=== PATIENT | female | born 1955 | race Caucasian/White ===

== ENCOUNTER 2018-11-11 12:18 | Inpatient (IN) | payer MEDICARE, MEDICAID ==
[~2018-11-11] VITALS: Ht 162.6 cm; Wt 82.6 kg
[2018-11-11 12:38] VITALS: BP 116/67
--- NOTE | 2018-11-11 12:38 | NUR ---
PT AMBULATED TO ROOM 6 PT PLACED ON O2 4LPM VIA N/C AND PLACED ON FULL COBOL PROGRAMMER.
--- NOTE | 2018-11-11 13:30 | NUR ---
c/o recurring frontal lobe headache , hacking dry cough with sob, dizziness x 1 wk denies n/v/d, denies f/c---full clear speech notable mild accessory muscle use noted ---no pedal edema
--- NOTE | 2018-11-11 13:31 | NUR ---
cxr at bedside
--- NOTE | 2018-11-11 13:40 | NUR ---
PER RT, GIVE PT OXYGEN 5-6 L/MIN WHEN HER O2 SATS LOWER THAN 94%, TAPER OXYGEN TO 3-4 L/MIN WHEN HER X2 SATS ABOVE 94%.
[2018-11-11] MEDS ORDERED: AZITHROMYCIN 500 MG in DEXTROSE 5% 250 ML IV ONE (13:50)
[2018-11-11] MEDS ORDERED: LEVOFLOXACIN 750 MG/D5W PREMIX 150 ML IV ONE (13:50)
[2018-11-11] MEDS ORDERED: NACL 0.9% 2,600 ML IV ONE (13:50)
[2018-11-11] MEDS ORDERED: AZITHROMYCIN 500 MG INJ VIAL IV ONE (14:26)
--- NOTE | 2018-11-11 14:40 | NUR ---
PT IS RESTING IN BED. VSS.
[2018-11-11 14:45] LABS: HEMATOCRIT 38.9 % (36-48); HEMOGLOBIN 13.1 g/dL (12.0-16.0); MEAN CORPUSCULAR HEMOGLOBIN 31 pg (27-31); MEAN CORPUSCULAR HGB CONC 34 g/dL (33-37); MEAN CORPUSCULAR VOLUME 91.8 fL (80-94); PLATELET COUNT (AUTO) 429 K/uL (140-450); RED BLOOD CELL COUNT(AUTO) 4.24 MIL/uL (4.20-5.40); RED CELL DISTRIBUTION WIDTH 13.2 % (11.6-13.7); WHITE BLOOD COUNT (AUTO) 19.1 K/uL (4.8-10.8)
[2018-11-11 15:09] LABS: ALBUMIN 2.3 g/dL (3.4-5.0); ANION GAP 9.3 (8-16); CARBON DIOXIDE 28.1 mmol/L (21-32); CREATININE 0.8 mg/dL (0.6-1.3); POTASSIUM 4.4 mmol/L (3.5-5.1); TOTAL BILIRUBIN 0.4 mg/dL (0.0-1.0)
[2018-11-11 15:14] LABS: LYMPHOCYTES % (MANUAL) 3 % (20-46)
--- NOTE | 2018-11-11 15:55 | NUR ---
PT IS RESTING IN BED WITH VSS.
[2018-11-11] MEDS ORDERED: DOCUSATE SODIUM 100 MG GELCAP PO PRN (16:35)
--- NOTE | 2018-11-11 16:50 | NUR ---
SPOKE TO PT VIA INTERPRETOR. INTERPRETING # [id number].
[2018-11-11 17:04] LABS: PROTHROMBIN TIME 10.8 secs (10.8-13.4)
[2018-11-11 17:10] VITALS: BP 116/53
--- NOTE | 2018-11-11 17:10 | NUR ---
PATIENT ARRIVED FROM ER VIA WHEELCHAIR. ABLE TO AMBULATE FROM ER BED TO [facility] BED WITH STEADY GAIT. NO DISTRESS NOTED. DENIES ANY PAIN. RESPIRATIONS EVEN, UNLABORED, ON O2 4L/MIN VIA NC. V/S STABLE. IV SITES INTACT, PATENT, AND INFUSING IVF PER MD ORDERS. LUNGS CRACKLES ON B/L LOWER LOBES. ORIENTED PATIENT TO ROOM AND CALL LIGHT. REVIEWED PLAN OF CARE WITH PATIENT. PATIENT VERBALIZED UNDERSTANDING. SAFETY MEASURES IN PLACE, CALL LIGHT WITHIN REACH. WILL CONTINUE TO MONITOR.
--- NOTE | 2018-11-11 17:10 | NUR ---
Patient will be admitted to care of PNEUMONIA. Admited to MED-SURG. Will go to room 107B. Belongings list completed. Report to DAREN SMILEY.
[2018-11-11 17:15] LABS: CHOL/HDL RATIO 5.6 (1-4.5); FREE T4 (FREE THYROXINE) 1.78 ng/dL (0.76-1.46); MAGNESIUM 1.9 mg/dL (1.8-2.4); PHOSPHORUS 4.1 mg/dL (2.5-4.9); THYROID STIMULATING HORMONE 0.09 uIU/mL (0.34-3.74)
[2018-11-11 17:16] LABS: BILIRUBIN,URINE NEGATIVE (NEGATIVE); BLOOD, URINE 1+ (NEGATIVE); COLOR,URINE YELLOW (YELLOW); LEUKOCYTE ESTERASE ,URINE 1+ (NEGATIVE); NITRITE, URINE NEGATIVE (NEGATIVE); UGLUCOSE NEGATIVE (NEGATIVE)
[2018-11-11] MEDS ORDERED: ALBUTEROL SULFATE/IPRATROPIU 3 ML SOL IH PRN (17:20)
[2018-11-11 17:25] LABS: BARBITURATE, URINE NEG. ng/ml (NEG <=200); BENZODIAZEPINE, URINE NEG. ng/mL (NEG <=200); CANNABINOID, URINE NEG. ng/mL (NEG <=50); COCAINE, URINE NEG. ng/mL (NEG <=300); OPIATE, URINE NEG. ng/mL (NEG <=2000); PHENCYCLIDINE SCREEN,URINE NEG. ng/mL (NEG <=25)
[2018-11-11] MEDS ORDERED: METHIMAZOLE 5 MG TAB PO SCH (17:45)
[2018-11-11] MEDS ORDERED: cefTRIAXone 1,000 MG VIAL ONE (18:02)
[2018-11-11] MEDS: NACL 0.9% 1,000 ML IV SCH (18:13)
--- NOTE | 2018-11-11 18:22 | NUR ---
SCHEDULED MEDICATIONS DUE GIVEN. WILL CONTINUE TO MONITOR.
[2018-11-11 19:09] LABS: APPEARANCE,URINE HAZY (CLEAR)
[2018-11-11 19:16] LABS: RBC,URINE NONE SEEN /HPF (0-5); WBC,URINE 0-5 /HPF (0-5)
--- NOTE | 2018-11-11 19:23 | NUR ---
GAVE REPORT TO RETAIL FURNITURE SALES NURSE FOR CONTINUITY OF CARE. PATIENT IN STABLE CONDITION.
--- NOTE | 2018-11-11 19:30 | NUR ---
RECEIVED PT FROM SHERICE MERCEDES PT KINYARWANDA SPEAKER AAOX4 HL ON BOTH ARM PATENT, IV ON RT ARM INFUSING WELL ON TELEMETRY ST PT ON O2 4 LTS VIA NC AND REFUSED SHE WANT TO LOWER O2 AND 02 ON 2 LTS WELL TOLERATED PT INITIAL ASSESSMENT DONE
[2018-11-11] MEDS: ALBUTEROL SULFATE/IPRATROPIU 3 ML SOL IH SCH (19:49)
--- NOTE | 2018-11-11 21:00 | NUR ---
RESP THERAPY IS HERE AND GIVE BREATHING TX
[2018-11-11 22:43] VITALS: BP 108/56
--- NOTE | 2018-11-12 | NUR ---
PT HAS A DRY COUGH PT ON O2 VIA NC NOT SOB NOTED ON TELE SR
[2018-11-12] MEDS: ALBUTEROL SULFATE/IPRATROPIU 3 ML SOL IH SCH ×4 (01:32→19:13)
[2018-11-12 04:00] VITALS: BP 108/50
--- NOTE | 2018-11-12 04:00 | NUR ---
SPONGE BATH GIVEN LINEN CHANGED PT VOIDING WELL USING BSC NOT DISTRESS NOTES ON TELE SR
[2018-11-12] MEDS: NACL 0.9% 1,000 ML IV SCH (05:58)
--- NOTE | 2018-11-12 06:07 | NUR ---
PT VERBALIZED TO FEELS BETTER BU PT STILL NEEDS O2 VIA NC, ON TELE SR PT WILL BE ENDORSED TO DAY SHIFT NURSE FOR CONTINUE OF CARE
--- NOTE | 2018-11-12 07:20 | NUR ---
RECEIVED ENDORSEMENT FROM VIDEO NETWORK ENGINEER NURSE. PATIENT IS AAOX4, MALDIVIAN SPEAKING. RESPIRATIONS ARE EVEN AND UNLABORED ON 4L NC. PATIENT DENIES ANY PAIN AT THIS TIME. RIGHT WRIST 22G IV INTACT, PATENT, AND INFUSING IVF. LEFT FA 22G IV INTACT AND SL. PLAN OF CARE WAS REVIEWED WITH PATIENT, PATIENT VERBALIZED UNDERSTANDING. SAFETY MEASURES IN PLACE, CALL LIGHT WITHIN REACH.
[2018-11-12 07:51] LABS: HEMOGLOBIN 12.3 g/dL (12.0-16.0); MEAN CORPUSCULAR HEMOGLOBIN 31 pg (27-31); MEAN CORPUSCULAR HGB CONC 33 g/dL (33-37); MEAN CORPUSCULAR VOLUME 92.5 fL (80-94); PLATELET COUNT (AUTO) 380 K/uL (140-450); RED CELL DISTRIBUTION WIDTH 13.3 % (11.6-13.7); WHITE BLOOD COUNT (AUTO) 19.7 K/uL (4.8-10.8)
[2018-11-12 08:00] VITALS: BP 119/74
[2018-11-12 08:16] LABS: CREATININE 0.8 mg/dL (0.6-1.3); POTASSIUM 3.8 mmol/L (3.5-5.1)
[2018-11-12 08:21] LABS: ANION GAP 13.3 (8-16); CARBON DIOXIDE 24.5 mmol/L (21-32)
[2018-11-12 08:33] LABS: BASOPHILS % (MANUAL) 0 % (0-2); EOSINOPHILS % (MANUAL) 5 % (0-4); LYMPHOCYTES % (MANUAL) 12 % (20-46); MONOCYTES % (MANUAL) 6 % (5-12)
[2018-11-12] MEDS: METHIMAZOLE 5 MG TAB PO SCH (08:34)
--- NOTE | 2018-11-12 08:35 | NUR ---
ADMINISTERED SCHEDULED MEDICATIONS. PATIENT TOLERATED WELL. PATIENT DENIES ANY PAIN AT THIS TIME. NO OTHER NEEDS AT THIS TIME, WILL CONTINUE TO MONITOR.
--- NOTE | 2018-11-12 10:10 | NUR ---
PATIENT RESTING IN BED. PATIENT DENIES ANY PAIN AT THIS TIME. NO OTHER NEEDS AT THIS TIME, WILL CONTINUE TO MONITOR.
--- NOTE | 2018-11-12 11:45 | NUR ---
US TECH AT BEDSIDE. PATIENT DENIES ANY PAIN AT THIS TIME. NO OTHER NEEDS AT THIS TIME, WILL CONTINUE TO MONITOR.
[2018-11-12 12:00] VITALS: BP 122/55
--- NOTE | 2018-11-12 13:05 | NUR ---
PATIENT RESTING IN BED. STATES THAT SHE IS FEELING MUCH BETTER. PATIENT DENIES SOB OR ANY PAIN AT THIS TIME, WILL CONTINUE TO MONITOR.
--- NOTE | 2018-11-12 14:38 | NUR ---
PATIENT RESTING IN BED. DENIES ANY PAIN AT THIS TIME. NO OTHER NEEDS AT THIS TIME, WILL CONTINUE TO MONITOR.
[2018-11-12] MEDS: AZITHROMYCIN 250 MG in DEXTROSE 5% 250 ML IV SCH (14:57)
--- NOTE | 2018-11-12 15:00 | NUR ---
ADMINISTERED SCHEDULED MEDICATIONS. PATIENT DENIES ANY PAIN AT THIS TIME. NO OTHER NEEDS AT THIS TIME, WILL CONTINUE TO MONITOR.
[2018-11-12 16:00] VITALS: BP 129/57
--- NOTE | 2018-11-12 17:12 | NUR ---
PATIENT RESTING IN BED. PATIENT DENIES ANY SOB OR PAIN. SON IS PRESENT AT THE BEDSIDE. NO OTHER NEEDS AT THIS TIME, WILL CONTINUE TO MONITOR.
--- NOTE | 2018-11-12 18:20 | NUR ---
ADMINISTERED SCHEDULED MEDICATIONS. PATIENT TOLERATED WELL. NO OTHER NEEDS AT THIS TIME.
--- NOTE | 2018-11-12 19:12 | NUR ---
ENDORSED TO LEARNING SUPPORT SERVICES DIRECTOR NURSE CODIE FOR CONTINUITY OF CARE. PATIENT IS STABLE AT THIS TIME.
--- NOTE | 2018-11-12 19:13 | NUR ---
RECEIVED BEDSIDE REPORT FROM DAY SHIFT NURSE. PT'S SPOUSE AT BEDSIDE. NO SOB NOTED WITH O2 4LPM VIA NC. INTERMITTENT NON-PRODUCTIVE COUGH NOTED. SKIN INTACT, WARM AND DRY TO TOUCH. IV SITE ON R WRIST, 22G SL AND L WRIST, 22G, RUNNING NS @ 60MLS/HR. PATENT, INTACT, AND ASYMPTOMATIC. BOARD UPDATED. BED IN LOW POSITION, CALL LIGHT WITHIN REACH.
[2018-11-12 20:00] VITALS: BP 111/60
[2018-11-12] MEDS: MELATONIN 3 MG TAB PO PRN (21:12)
--- NOTE | 2018-11-12 21:12 | NUR ---
PT C/O SLEEPLESSNESS. REPORT TO DR. VIDAL AND GIVEN MELATONIN ORDERED. PT TOLERATED WELL.
[2018-11-13] VITALS: BP 110/61
[2018-11-13] MEDS: ALBUTEROL SULFATE/IPRATROPIU 3 ML SOL IH SCH ×4 (01:00→20:07)
--- NOTE | 2018-11-13 01:06 | NUR ---
PT REFUSED HHN, SHE WANTS TO SLEEP,SAT 95%, NO DISTTRESS NOTED
[2018-11-13] MEDS: NACL 0.9% 1,000 ML IV SCH ×2 (01:54→18:12)
--- NOTE | 2018-11-13 02:15 | NUR ---
PT SLEEPING IN BED. RESPIRATORY EVEN AND UNLABORED.
--- NOTE | 2018-11-13 03:45 | NUR ---
PT SLEEPING IN BED. NO ACUTE DISTRESS NOTED.
[2018-11-13 04:00] VITALS: BP 130/73
--- NOTE | 2018-11-13 05:55 | NUR ---
PT SLEEPING IN BED. BREATHING EVEN AND UNLABORED. WILL CONTINUE TO MONITOR.
--- NOTE | 2018-11-13 07:05 | NUR ---
ENDORSE PT TO DAY SHIFT NURSE. PT IN STABLE CONDITION.
--- NOTE | 2018-11-13 07:06 | NUR ---
RECEIVED ENDORSEMENT FROM CUSTOMER SERVICE ASSOCIATE NURSE MALAIKA. PATIENT IS AAOX4, BELIZEAN SPEAKING. RESPIRATIONS ARE EVEN AND UNLABORED ON 4L NC. PATIENT DENIES ANY PAIN AT THIS TIME. RIGHT WRIST 22G IV INTACT AND SL. LEFT HAND 22G IV INTACT, PATENT, AND INFUSING IVF. PLAN OF CARE WAS REVIEWED WITH PATIENT IN [place], PATIENT VERBALIZED UNDERSTANDING. SAFETY MEASURES IN PLACE, CALL LIGHT WITHIN REACH.
[2018-11-13 07:40] LABS: ANION GAP 12.2 (8-16); CARBON DIOXIDE 26.5 mmol/L (21-32); CREATININE 0.8 mg/dL (0.6-1.3); POTASSIUM 3.7 mmol/L (3.5-5.1)
[2018-11-13 07:41] LABS: BASOPHILS # (AUTO) 0.2 K/uL (0.00-0.22); BASOPHILS % (AUTO) 1.1 % (0.0-2.0); EOSINOPHILS % (AUTO) 6.6 % (0.0-4.0); HEMATOCRIT 37.4 % (36-48); HEMOGLOBIN 12.3 g/dL (12.0-16.0); LYMPHOCYTES # (AUTO) 1.1 K/uL (2.5-16.5); LYMPHOCYTES % (AUTO) 6.8 % (20.5-51.1); MEAN CORPUSCULAR HEMOGLOBIN 31 pg (27-31); MEAN CORPUSCULAR HGB CONC 33 g/dL (33-37); MEAN CORPUSCULAR VOLUME 93.1 fL (80-94); MONOCYTES % (AUTO) 6.4 % (1.7-9.3); NEUTROPHILS # (AUTO) 12.3 K/uL (1.8-7.7); NEUTROPHILS % (AUTO) 79.1 % (42.2-75.2); PLATELET COUNT (AUTO) 389 K/uL (140-450); RED BLOOD CELL COUNT(AUTO) 4.02 MIL/uL (4.20-5.40); RED CELL DISTRIBUTION WIDTH 13.2 % (11.6-13.7); WHITE BLOOD COUNT (AUTO) 15.5 K/uL (4.8-10.8)
[2018-11-13 08:00] VITALS: BP 137/60
--- NOTE | 2018-11-13 08:35 | NUR ---
PATIENT HAS BEEN SCREENED AND CATEGORIZED HIGH NUTRITION RISK. PATIENT WILL BE SEEN WITHIN 1-2 DAYS OF ADMISSION. 11/13/[address]
[2018-11-13] MEDS: METHIMAZOLE 5 MG TAB PO SCH (08:36)
--- NOTE | 2018-11-13 08:37 | NUR ---
ADMINISTERED SCHEDULED MEDICATION. PATIENT TOLERATED WELL, NO OTHER NEEDS AT THIS TIME.
--- NOTE | 2018-11-13 09:30 | NUR ---
CONSENT HAS BEEN OBTAINED FOR CT OF CHEST WITH CONTRAST. PENDING NEW IV INSERTION.
--- NOTE | 2018-11-13 10:20 | NUR ---
Clinicals faxed to [facility] . Luli Hidalgo .
--- NOTE | 2018-11-13 10:40 | NUR ---
20G IV WAS PLACED FOR CONTRAST. CT WAS NOTIFIED. PATIENT HAS BEEN PLACED NPO FOR CT. PATIENT IS AWARE, SHE IS RESTING IN BED. DENIES ANY PAIN AT THIS TIME. NO OTHER NEEDS AT TIME, WILL CONTINUE TO MONITOR.
[2018-11-13] MEDS ORDERED: TAP5 PO (11:11)
[2018-11-13] MEDS ORDERED: ROC2I IJ (11:11)
[2018-11-13] MEDS ORDERED: AZIT500P1 IV (11:11)
[2018-11-13 12:00] VITALS: BP 132/75
--- NOTE | 2018-11-13 12:15 | NUR ---
PATIENT RESTING IN BED. PATIENT DENIES PAIN. NO OTHER NEEDS AT THIS TIME, WILL CONTINUE TO MONITOR.
--- NOTE | 2018-11-13 12:30 | NUR ---
PATIENT LEFT FOR CT. WILL MONITOR UPON RETURN.
--- NOTE | 2018-11-13 13:01 | NUR ---
Placed a call to Luli Hidalgo CM for [facility]. Left a message for call back.
--- NOTE | 2018-11-13 13:29 | NUR ---
11/13/18 RD INITIAL ASSESSMENT COMPLETED PLEASE REFER TO NUTRITION ASSESSMENT UNDER CARE ACTIVITY FOR ESTIMATED NUTRITIONAL NEEDS. 1. CONTINUE REGULAR DIET TOLERATED 2. RD TO FOLLOW-UP 5-7 DAYS, LOW RISK DENIZ WHYTE RD
--- NOTE | 2018-11-13 14:15 | NUR ---
PATIENT RESTING IN BED. PATIENT DENIES ANY PAIN AT THIS TIME. NO OTHER NEEDS AT THIS TIME.
--- NOTE | 2018-11-13 14:32 | NUR ---
Late entry. Spoke with Luli Hidalgo CM from [facility] at 1310 today. Informed Luli that the discharge plan for the pt per Dr. Peterson is in 2 days if everything is okay. Per Luli, no need to transfer the pt since the pt will be discharge in [address] Peterson that pt doesn't need to be transferred to [facility] per Luli Hidalgo CM from [facility].
--- NOTE | 2018-11-13 14:46 | NUR ---
Called Dr. Peterson and informed her again that per Luli Hidalgo CM from [facility], pt doesn't need to be transferred to [facility] since the plan of discharge will be in 2 days.
[2018-11-13] MEDS: AZITHROMYCIN 250 MG in DEXTROSE 5% 250 ML IV SCH (15:13)
--- NOTE | 2018-11-13 15:15 | NUR ---
ADMINISTERED SCHEDULED MEDICATIONS. PATIENT TOLERATED WELL. PATIENT DENIES ANY PAIN AT THIS, NO OTHER NEEDS AT THIS TIME.
[2018-11-13 16:00] VITALS: BP 114/80
--- NOTE | 2018-11-13 16:22 | NUR ---
PATIENT IS RESTING IN BED. PATIENT DENIES PAIN AT THIS TIME. NO OTHER NEEDS AT THIS TIME, WILL CONTINUE TO MONITOR.
--- NOTE | 2018-11-13 18:06 | NUR ---
ADMINISTERED SCHEDULED MEDICATION. PATIENT TOLERATED WELL. PATIENT DENIES ANY PAIN AT THIS TIME. PATIENTS SON IS AT THE BEDSIDE. PATIENT REQUESTING INFORMATION ON STUDIES DONE AND HAS CONCERNS REGARDING INSURANCE. WILL ENDORSE TO NIGHT NURSE.
--- NOTE | 2018-11-13 19:23 | NUR ---
RECIEVED PT.AAOX4 , NID , RESPIRATION IS EVEN AND UNLABORED , SIDERA IV SITE INTACT AND PATENT , ON FALL RISK PROTOCOL- BED SIDE IN LOW POSITION ,SIDERAILS UPX2, CALL LIGHT WITHIN REACH , PLAN OF CARE DISCUSSED AND VERBALIZE UNDERSTANDING , REALTIVE AT BEDSIDE , WILL CONT. TO MONITOR.
--- NOTE | 2018-11-13 19:23 | NUR ---
ENDORSED TO GARAGE LABORER NURSE VERÓNICA FOR CONTINUITY OF CARE. PATIENT IS STABLE AT THIS TIME.
[2018-11-13 20:00] VITALS: BP 122/70
--- NOTE | 2018-11-13 22:00 | NUR ---
MADE ROUNDS , RESPIRATION EVEN AND UNLABORED , NO COMPLAIN MADE AT THIS TIME , CALL LIGHT WITHIN REACH.
[2018-11-14] VITALS: BP 125/72
--- NOTE | 2018-11-14 | NUR ---
MADE ROUNDS , RESPIRATION EVEN AND UNLABORED , NO COMPLAIN MADE AT THIS TIME , CALL LIGHT WITH IN REACH .
[2018-11-14] MEDS: ALBUTEROL SULFATE/IPRATROPIU 3 ML SOL IH SCH ×4 (01:00→19:20)
--- NOTE | 2018-11-14 01:09 | NUR ---
PATIENT REFUSED HHNTX. PT WANTS TO SLEEP. NO SOB NOTED
--- NOTE | 2018-11-14 02:59 | NUR ---
MADE ROUNDS -PT SLEEPING.
[2018-11-14 04:00] VITALS: BP 122/70
--- NOTE | 2018-11-14 07:20 | NUR ---
RECEIVED BEDSIDE REPORT FROM APPLIED ANTHROPOLOGIST NURSE FOR CONTINUITY OF CARE. PATIENT IS AWAKE AND RESTING ON BED. PATIENT IS AAOX4, SPEAKS SLOV[place] AND UNDERSTAND MINIMAL UZBEK. PATIENT IS ABLE TO MAKE NEEDS KNOWN AND FOLLOW COMMANDS. RESPIRATION EVEN AND UNLABORED ON 4LPM VIA NC. LUNGS ARE CLEAR ON AUSCULTATION. PATIENT DENIED PAIN AT THIS TIME. NO SIGNS OF DISTRESS NOTED. IV ON RFA 20G, CLEAN AND INTACT, INFUSING PER MD ORDER. L HAND 20G, CLEAN AND INTACT, SL. SKIN DRY AND CLEAN. PATIENT IS ABLE TO AMBULATE WITH ASSIST AND CONTINENT. DISCUSSED PLAN OF CARE WITH PATIENT, AND PATIENT SAID OK. TELE MONITOR ATTACHED. SAFETY MEASURES IN PLACE. FALL PROTOCOL INITIALED. BED IN LOW POSITION AND CALL LIGHT WITHIN REACH. INSTRUCTED PATIENT TO USE THE CALL LIGHT FOR ANY ASSISTANCE AND PATIENT WAS AWARE.
--- NOTE | 2018-11-14 07:20 | NUR ---
ENDORSED TO AM SHIFT WITH STABLE CONDITION.
[2018-11-14 07:27] LABS: BASOPHILS # (AUTO) 0.2 K/uL (0.00-0.22); BASOPHILS % (AUTO) 1.4 % (0.0-2.0); EOSINOPHILS % (AUTO) 6.8 % (0.0-4.0); HEMATOCRIT 36.4 % (36-48); HEMOGLOBIN 11.9 g/dL (12.0-16.0); LYMPHOCYTES # (AUTO) 1.1 K/uL (2.5-16.5); LYMPHOCYTES % (AUTO) 7.6 % (20.5-51.1); MEAN CORPUSCULAR HEMOGLOBIN 31 pg (27-31); MEAN CORPUSCULAR HGB CONC 33 g/dL (33-37); MEAN CORPUSCULAR VOLUME 93.1 fL (80-94); MONOCYTES % (AUTO) 6.7 % (1.7-9.3); NEUTROPHILS # (AUTO) 11.6 K/uL (1.8-7.7); NEUTROPHILS % (AUTO) 77.5 % (42.2-75.2); PLATELET COUNT (AUTO) 389 K/uL (140-450); RED BLOOD CELL COUNT(AUTO) 3.91 MIL/uL (4.20-5.40); RED CELL DISTRIBUTION WIDTH 13.4 % (11.6-13.7)
[2018-11-14 07:49] LABS: ANION GAP 8.8 (8-16); CARBON DIOXIDE 28.9 mmol/L (21-32); CREATININE 0.7 mg/dL (0.6-1.3); POTASSIUM 3.7 mmol/L (3.5-5.1)
[2018-11-14 07:57] LABS: MAGNESIUM 1.7 mg/dL (1.8-2.4); PHOSPHORUS 3.5 mg/dL (2.5-4.9)
[2018-11-14 08:00] VITALS: BP 120/63
[2018-11-14] MEDS: METHIMAZOLE 5 MG TAB PO SCH (08:13)
[2018-11-14] MEDS: ACETAMINOPHEN 325 MG TAB PO PRN (08:14)
--- NOTE | 2018-11-14 08:14 | NUR ---
PATIENT COMPLAINED SHE HAS 3/10 HEADACHE, ADMINISTERED PRN PAIN MED ACETAMINOPHEN AND AM SCHEDULED MED, PATIENT TOLERATED WELL. PATIENT IS AWAKE AND SITTING UP ON BED EATING BREAKFAST. TELE MONITOR ATTACHED. SAFETY MEASURES IN PLACE. BED IN LOW POSITION AND CALL LIGHT WITHIN REACH. INSTRUCTED PATIENT TO USE THE CALL LIGHT FOR ANY ASSISTANCE AND PATIENT WAS AWARE.
--- NOTE | 2018-11-14 08:56 | NUR ---
DR SIMMONS SPOKE TO PATIENT AT BEDSIDE AND EXPLAINED THE RISKS AND BENEFITS ON REGARDS OF ULTRASOUND GUIDED NEEDLE BIOPSY ON THYROID. OBTAINED CONSENT VIA POLICE SERGEANT SERVICES [facility] #[id number], PATIENT UNDERSTOOD AND WAS ACKNOWLEDGED OF THE BIOPSY. PATIENT IS AWAKE AND RESTING ON BED AT THIS TIME. TELE MONITOR ATTACHED. SAFETY MEASURES IN PLACE. BED IN LOW POSITION AND CALL LIGHT WITHIN REACH. INSTRUCTED PATIENT TO USE THE CALL LIGHT FOR ANY ASSISTANCE AND PATIENT WAS AWARE.
[2018-11-14] MEDS ORDERED: MAGNESIUM OXIDE 400 MG TAB PO SCH (09:00)
[2018-11-14 09:10] LABS: LACTATE DEHYDROGENASE 170 IU/L (119-226)
--- NOTE | 2018-11-14 09:45 | NUR ---
PATIENT AWAKE AND SITTING UP ON CHAIR. DENIED PAIN AND SOB. NO SIGNS OF DISTRESS NOTED. TELE MONITOR ATTACHED. SAFETY MEASURES IN PLACE. BED IN LOW POSITION AND CALL LIGHT WITHIN REACH. INSTRUCTED PATIENT TO USE THE CALL LIGHT FOR ANY ASSISTANCE AND PATIENT WAS AWARE.
--- NOTE | 2018-11-14 11:15 | NUR ---
PATIENT AWAKE AND SITTING ON A CHAIR. RESPIRATION EVEN AND UNLABORED. NO SIGNS OF DISTRESS NOTED. SAFETY MEASURES IN PLACE. BED IN LOW POSITION AND CALL LIGHT WITHIN REACH. INSTRUCTED PATIENT TO USE THE CALL LIGHT FOR ANY ASSISTANCE AND PATIENT WAS AWARE.
[2018-11-14 12:00] VITALS: BP 104/58
[2018-11-14] MEDS: NACL 0.9% 1,000 ML IV SCH (12:38)
--- NOTE | 2018-11-14 13:30 | NUR ---
I RECEIVED A CALL FROM [facility] HANCOCK [facility] REGARDING [facility]IENT'S CONDITION AND UPDATE, NOTIFIED CLINTON THAT MD ORDERED SNF FOR IV ABX AND PHYSICAL THERAPY . PER CLINTON SHE WILL REVIEW THE CLINICAL NOTED AND WILL CALL BACK.
--- NOTE | 2018-11-14 13:45 | NUR ---
PATIENT AWAKE AND RESTING ON BED AT THIS TIME. DENIED PAIN AND SOB. RESPIRATION EVEN AND UNLABORED ON 3LPM VIA NC. NO SIGNS OF DISTRESS NOTED. TELE MONITOR ATTACHED. SAFETY MEASURES IN PLACE. BED IN LOW POSITION AND CALL LIGHT WITHIN REACH. BED ALARM ACTIVATED. INSTRUCTED PATIENT TO USE THE CALL LIGHT FOR ANY ASSISTANCE AND PATIENT WAS AWARE.
[2018-11-14] MEDS: AZITHROMYCIN 250 MG in DEXTROSE 5% 250 ML IV SCH (15:07)
[2018-11-14 16:00] VITALS: BP 122/72
--- NOTE | 2018-11-14 17:15 | NUR ---
ASSISTED PATIENT TO USE THE BATHROOM AND BACK ON BED. POSITIONED PATIENT COMFORTABLY. PATIENT DENIED AND SOB. NO SIGNS OF DISTRESS NOTED. TELE MONITOR ATTACHED. SAFETY MEASURES IN PLACE. BED IN LOW POSITION AND CALL LIGHT WITHIN REACH. BED ALARM ACTIVATED. INSTRUCTED PATIENT TO USE THE CALL LIGHT FOR ANY ASSISTANCE AND PATIENT WAS AWARE.
--- NOTE | 2018-11-14 18:01 | NUR ---
PATIENT IS HAVING DINNER AT THIS TIME. NO SIGNS OF DISTRESS NOTED. TELE MONITOR ATTACHED. SAFETY MEASURES IN PLACE. BED IN LOW POSITION AND CALL LIGHT WITHIN REACH. BED ALARM ACTIVATED. INSTRUCTED PATIENT TO USE THE CALL LIGHT FOR ANY ASSISTANCE AND PATIENT WAS AWARE.
--- NOTE | 2018-11-14 18:41 | NUR ---
PATIENT AWAKE AND TALKING TO SON DANIELE AT BEDSIDE. DENIED PAIN AND SOB. NO SIGNS OF DISTRESS NOTED. SAFETY MEASURES IN PLACE. TELE MONITOR ATTACHED. BED IN LOW POSITION AND CALL LIGHT WITHIN REACH. INSTRUCTED PATIENT TO USE THE CALL LIGHT FOR ANY ASSISTANCE AND PATIENT WAS AWARE.
--- NOTE | 2018-11-14 19:13 | NUR ---
ENDORSED PATIENT AT BEDSIDE TO ESTIMATOR AND DRAFTER SUPERVISOR NURSE FOR CONTINUITY OF CARE. PATIENT IS TALKING TO SON DANIELE AT BEDSIDE AT THIS TIME. NO SIGNS OF DISTRESS NOTED. SAFETY MEASURES IN PLACE. TELE MONITOR ATTACHED. BED IN LOW POSITION AND CALL LIGHT WITHIN REACH.
--- NOTE | 2018-11-14 19:14 | NUR ---
RECEIVED REPORT FROM DAY SHIFT NURSE RACQUEL-RN AT BEDSIDE. PT RESTING IN BED WITH FAMILY AT BEDSIDE, AOX4-WOLOF SPEAKING, ON 3L/NC, WITH RIGHT FA #20G RUNNING NS @40ML/HR AND LEFT HAND #22G-SL. DISCUSSED PLAN OF CARE AND PT VERBALIZED UNDERSTANDING. NO S/S OF RESPIRATORY DISTRESS OR DISCOMFORT NOTED AT THIS TIME. BED IN LOWEST POSITION, BED BREAKS ON, BOTH SIDE RAILS UP AND FALL PRECAUTIONS IN PLACE. BEDSIDE TABLE AND CALL LIGHT ARE WITHIN REACH. WILL CONTINUE TO MONITOR.
--- NOTE | 2018-11-14 19:23 | NUR ---
* ST NOTE * Pt seen at bedside w/son present. Pt consenting to session w/son present. Pt alert, cooperative and engaged throughout session, reporting no c/o pain at this time. Bedside dysphagia and oral mechanism exams completed. See evaluation report for further details. Pt tolerating 4/4 alternating PO trials of regular solid crackers as well as 4/4 alternating PO trials of thin liquid apple juice via a straw, all w/o s/s of aspiration or choking. Pt and son education compmleted re: aspiration precautions and safe swallow compensatory strategies pt and caregivers could utilize to aid pt w/swallow function, w/pt and son verbalizing understanding and agreement w/clinician's recommendations. It is thus recommended pt remain on PO diet consistency of regular solids w/thin liquids for all meals, w/aspiration precautions in place. No further ST follow up recommended at this time. Pt, caregiver/son, & caregiver/Nsg Michelle education completed re: results of evaluation; benefits of abiding by aspiration precautions; and prognosis for improvement; w/pt, caregiver/son, & caregiver/Nsg Michelle verbalizing understanding and agreement w/clinician's recommendations. Recommend: - PO DIET CONSISTENCY OF REGULAR SOLIDS W/THIN LIQUIDS for all meals - WHOLE PILL PO MEDICATION ADMINISTRATION - MAINTAIN STRICT ASPIRATION PRECAUTIONS DURING PT'S PO INTAKE - Pt can self-feed - CUE/REMIND PT TO SIT UP AT 80-90 DEGREE ANGLE DURING PO INTAKE; EAT/DRINK SLOWLY; ALTERNATE BTWN SOLIDS & LIQUIDS; AND TO TAKE SMALL BITES/SIPS - FNS/DIETARY: PT REQUESTING SOY MILK TID W/MEALS No further ST follow up recommended at this time. NOMS Level 2
[2018-11-14 20:00] VITALS: BP 113/59
--- NOTE | 2018-11-14 21:00 | NUR ---
PT RESTING IN BED. NO S/S OF RESPIRATORY DISTRESS OR DISCOMFORT NOTED AT THIS TIME. WILL CONTINUE TO MONITOR.
--- NOTE | 2018-11-14 22:00 | NUR ---
PT SLEEPING IN BED. NO S/S OF RESPIRATORY DISTRESS OR DISCOMFORT NOTED AT THIS TIME. WILL CONTINUE TO MONITOR.
[2018-11-14] MEDS: MELATONIN 3 MG TAB PO PRN (23:31)
--- NOTE | 2018-11-14 23:31 | NUR ---
PT C/O INSOMNIA. MEDICATED WITH MELATONIN AND PT TOLERATED WELL. NO S/S OF RESPIRATORY DISTRESS OR DISCOMFORT NOTED AT THIS TIME. WILL CONTINUE TO MONITOR.
[2018-11-15] VITALS: BP 89/32
--- NOTE | 2018-11-15 | NUR ---
VITAL SIGNS TAKEN AND TOLERATED WELL. DECREASED BP NOTED. NO S/S OF RESPIRATORY DISTRESS OR DISCOMFORT NOTED AT THIS TIME. WILL CONTINUE TO MONITOR.
[2018-11-15] MEDS: ALBUTEROL SULFATE/IPRATROPIU 3 ML SOL IH SCH ×4 (01:00→20:12)
--- NOTE | 2018-11-15 02:00 | NUR ---
PT SLEEPING IN BED. NO S/S OF RESPIRATORY DISTRESS OR DISCOMFORT NOTED AT THIS TIME. WILL CONTINUE TO MONITOR.
[2018-11-15 04:00] VITALS: BP 114/63
--- NOTE | 2018-11-15 04:00 | NUR ---
VITAL SIGNS TAKEN AND TOLERATED WELL. NO S/S OF RESPIRATORY DISTRESS OR DISCOMFORT NOTED AT THIS TIME. WILL CONTINUE TO MONITOR.
[2018-11-15] MEDS: ONDANSETRON 4 MG/2 ML VIAL IM/IVP PRN (05:45)
[2018-11-15] MEDS: ACETAMINOPHEN 325 MG TAB PO PRN (05:45)
--- NOTE | 2018-11-15 05:45 | NUR ---
PT C/O NAUSEA AND HEADACHE. ZOFRAN AND TYLENOL GIVEN AND TOLERATED WELL. NO S/S OF RESPIRATORY DISTRESS OR DISCOMFORT NOTED AT THIS TIME. WILL CONTINUE TO MONITOR.
[2018-11-15 07:26] LABS: BASOPHILS # (AUTO) 0.2 K/uL (0.00-0.22); BASOPHILS % (AUTO) 1.1 % (0.0-2.0); EOSINOPHILS % (AUTO) 5.4 % (0.0-4.0); HEMATOCRIT 39.3 % (36-48); LYMPHOCYTES # (AUTO) 1.1 K/uL (2.5-16.5); LYMPHOCYTES % (AUTO) 6.4 % (20.5-51.1); MEAN CORPUSCULAR HEMOGLOBIN 31 pg (27-31); MEAN CORPUSCULAR HGB CONC 33 g/dL (33-37); MEAN CORPUSCULAR VOLUME 93.4 fL (80-94); MONOCYTES % (AUTO) 5.8 % (1.7-9.3); NEUTROPHILS # (AUTO) 14.2 K/uL (1.8-7.7); NEUTROPHILS % (AUTO) 81.3 % (42.2-75.2); PLATELET COUNT (AUTO) 426 K/uL (140-450); RED BLOOD CELL COUNT(AUTO) 4.21 MIL/uL (4.20-5.40); RED CELL DISTRIBUTION WIDTH 13.3 % (11.6-13.7); WHITE BLOOD COUNT (AUTO) 17.5 K/uL (4.8-10.8)
--- NOTE | 2018-11-15 07:32 | NUR ---
RECEIVED REPORT FROM NIGHT RN. PT RESTING IN BED. AAOX4, NO S/S OF ACUTE DISTRESS. PT DENIES PAIN. IV SITE PATENT AND INTACT. CALL LIGHT WITHIN REACH. SAFETY MEASURES ENSURED. WILL CONTINUE TO MONITOR.
[2018-11-15 07:34] LABS: ANION GAP 11.5 (8-16); CARBON DIOXIDE 27.4 mmol/L (21-32); CREATININE 0.7 mg/dL (0.6-1.3); POTASSIUM 3.9 mmol/L (3.5-5.1)
[2018-11-15 07:38] LABS: MAGNESIUM 1.7 mg/dL (1.8-2.4); PHOSPHORUS 3.5 mg/dL (2.5-4.9)
[2018-11-15] MEDS ORDERED: AZIT250T3 PO (09:13)
[2018-11-15] MEDS: METHIMAZOLE 5 MG TAB PO SCH (09:55)
[2018-11-15 10:54] VITALS: BP 90/50
--- NOTE | 2018-11-15 11:00 | NUR ---
PT AMBULATED WITH PT. PT'S O2 84% ON RA SITTING IN BED. 79% AFTER AMBULATING ON RA.
[2018-11-15] MEDS ORDERED: MAGNESIUM OXIDE 400 MG TAB PO SCH (11:30)
--- NOTE | 2018-11-15 11:38 | NUR ---
CALLED CLINTON HANCOCK FOR F/U SNF REQUEST [phone] PER CLINTON SHE DISCUSSED THE CASE WITH VOLLEYBALL ASSEMBLER AND HAS THE DECISION FOR HOME HEALTH WITH PT. I UPDATED HER WITH TODAY'S LAB WBC INCREASED TO 17.5 AND CXRAY . SHE STATED WILL UPDATE THE CONDITION OF PT TO THE VOLLEYBALL ASSEMBLER AND CALL BACK.
[2018-11-15 11:41] VITALS: BP 100/64
[2018-11-15] MEDS: NACL 0.9% 1,000 ML IV SCH (11:54)
[2018-11-15 12:29] LABS: BASOPHILS # (AUTO) 0.2 K/uL (0.00-0.22); BASOPHILS % (AUTO) 0.9 % (0.0-2.0); EOSINOPHILS # (AUTO) 0.8 K/uL (0-0.4); EOSINOPHILS % (AUTO) 5.1 % (0.0-4.0); HEMATOCRIT 38.1 % (36-48); HEMOGLOBIN 12.5 g/dL (12.0-16.0); LYMPHOCYTES # (AUTO) 1.2 K/uL (2.5-16.5); LYMPHOCYTES % (AUTO) 7.6 % (20.5-51.1); MEAN CORPUSCULAR HEMOGLOBIN 31 pg (27-31); MEAN CORPUSCULAR HGB CONC 33 g/dL (33-37); MEAN CORPUSCULAR VOLUME 93.2 fL (80-94); MONOCYTES # (AUTO) 0.9 K/uL (0.8-1.0); MONOCYTES % (AUTO) 5.5 % (1.7-9.3); NEUTROPHILS # (AUTO) 13.3 K/uL (1.8-7.7); NEUTROPHILS % (AUTO) 80.9 % (42.2-75.2); PLATELET COUNT (AUTO) 426 K/uL (140-450); RED BLOOD CELL COUNT(AUTO) 4.09 MIL/uL (4.20-5.40); RED CELL DISTRIBUTION WIDTH 13.5 % (11.6-13.7); WHITE BLOOD COUNT (AUTO) 16.4 K/uL (4.8-10.8)
--- NOTE | 2018-11-15 13:35 | NUR ---
PT SITTING ON SIDE OF BED. NO S/S OF ACUTE DISTRESS. PT DENIES PAIN. IV SITE PATENT AND INTACT. CALL LIGHT WITHIN REACH. SAFETY MEASURES ENSURED. WILL CONTINUE TO MONITOR.
[2018-11-15] MEDS: AZITHROMYCIN 250 MG in DEXTROSE 5% 250 ML IV SCH (15:39)
--- NOTE | 2018-11-15 15:51 | NUR ---
PT RESTING IN BED. NO S/S OF ACUTE DISTRESS. PT DENIES PAIN. CALL LIGHT WITHIN REACH. SAFETY MEASURES ENSURED. WILL CONTINUE TO MONITOR.
[2018-11-15 15:56] VITALS: BP 105/65
--- NOTE | 2018-11-15 16:08 | NUR ---
CONTACTED [employer] AT [phone], SPOKE TO ABBI, SHE PROVIDED ME WITH ANOTHER TO NUMBER [phone]. PROVIDED ME WITH ANOTHER NUMBER TO CALL [phone], SPOKE TO EILEEN. SHE SAID THE REQUEST IS STILL PENDING TRACKING NUMBER [id number] AND REFERENCE NUMBER [id number]
--- NOTE | 2018-11-15 16:25 | NUR ---
DR MEDINA MADE AWARE THAT SNF AUTH IS STILL PENDING.
--- NOTE | 2018-11-15 19:30 | NUR ---
RECEIVED BEDSIDE REPORT FROM DAY SHIFT NURSE, PATIENT RESTING IN BED, IV IN LEFT HAND LEAKING, D/C CATH INTACT. IV IN RIGHT AC INTACT, 20 G. ON RA, C/O OF PAIN ASKED FOR NORCO AND SOMETHING TO SLEEP SINCE SHE HAS NOT BEEN ABLE TO SLEEP THE LAST COUPLE DAYS.
[2018-11-15 20:00] VITALS: BP 127/67
[2018-11-15] MEDS: MELATONIN 3 MG TAB PO PRN (20:37)
[2018-11-15] MEDS: HYDROcodone/APAP 7.5/325 MG 1 TAB PO PRN (20:37)
--- NOTE | 2018-11-15 20:37 | NUR ---
GAVE NORCO AND MELATONIN PER PATIENT REQUEST. DR BYRNES AT BEDSIDE UPDATE GIVEN STATED TO CONTINUE IV ANTIBIOTICS
[2018-11-16] VITALS: BP 125/60
--- NOTE | 2018-11-16 00:10 | NUR ---
PATIENT DESATURATED TO 90% O2 ON 1 L. APPLIED 2 L REASSESSED PATIENT O2SAT 96%, ON 3 L 98-100%
--- NOTE | 2018-11-16 00:30 | NUR ---
SLEEPING IN BED NO SIGNS OF DISTRESS
[2018-11-16] MEDS: ALBUTEROL SULFATE/IPRATROPIU 3 ML SOL IH SCH ×4 (01:00→19:05)
--- NOTE | 2018-11-16 01:00 | NUR ---
PT ASLEEP, NO DISTRESS NOTED
[2018-11-16] MEDS: NACL 0.9% 1,000 ML IV SCH ×2 (01:11→12:52)
--- NOTE | 2018-11-16 03:30 | NUR ---
PATIENT AMBULATED TO RESTROOM STEADY GAIT, WILL CONTINUE TO MONITOR
[2018-11-16 04:00] VITALS: BP 135/66
--- NOTE | 2018-11-16 04:54 | NUR ---
PATIENT AMBULATED TO RESTROOM, ASSISTED BACK INTO BED, CALL LIGHT WITHIN REACH
[2018-11-16] MEDS: HYDROcodone/APAP 7.5/325 MG 1 TAB PO PRN ×4 (05:19→18:09)
--- NOTE | 2018-11-16 06:22 | NUR ---
UPDATE GIVEN TO DR SIMMONS
--- NOTE | 2018-11-16 07:20 | NUR ---
ENDORSED PATIENT TO DAY SHIFT NURSE, PATIENT STABLE.
--- NOTE | 2018-11-16 07:21 | NUR ---
RECEIVED REPORT FROM STUDY ASSISTANT NURSE. AROUSABLE TO NAME, PT AAOX4, BENINESE SPEAKING BUT ABLE TO MAKE NEEDS KNOWN. NO C/O PAIN AT THIS TIME. RESPIRATIONS EVEN AND UNLABORED ON O2 3L VIA N/C, NO SIGNS OF DISTRESS OR SOB AT THIS TIME. IV ON LT AC 20 GA RUNNING IVF PER ORDER, DRESSING CLEAN, DRY AND INTACT. BOWEL SOUNDS ACTIVE, LBM 7/25. SKIN IS INTACT, WARM TO TOUCH. PT ON FALL PRECAUTIONS, SAFETY MEASURES IN PLACE, CALL LIGHT WITHIN REACH. REVIEWED POC WITH PT, PT AGREES AND VERBALIZES UNDERSTANDING. WILL CONTINUE TO MONITOR. Addendum: 11/16/18 at 1100 by Zuleika Guerra RN CLARIFICATION IV ON RT FA 20 GA RUNNING IV PER ORDER
[2018-11-16 08:00] VITALS: BP 116/58
--- NOTE | 2018-11-16 09:05 | NUR ---
DISCONTINUE IV TO LT AC 20 GA D/T TO LEAKING OF IV AND RESISTANCE WHEN FLUSHING, IV CANNULA INTACT, NO ACTIVE BLEEDING NOTED. WILL CONTINUE TO MONITOR. Addendum: 11/16/18 at 1059 by Zuleika Guerra RN CLARIFICATION DISCONTINUED RT FA 20 GA
--- NOTE | 2018-11-16 09:15 | NUR ---
SUPERVISOR TAPINGDAREN MARCANO PLACED NEW IV TO LT HAND 20 GA, FLUSHING WITH NO RESISTANCE. PT TOLERATED WELL.
[2018-11-16] MEDS: METHIMAZOLE 5 MG TAB PO SCH (09:17)
--- NOTE | 2018-11-16 10:09 | NUR ---
CALLED [facility] [phone] SPOKE WITH CLINTON HANCOCK NOTIFIED HER THAT OUR MD HIGHLY RECOMMENDED THAT THE PATIENT TO GO TO SNF FOR IV ABX AND PT , PER CLINTON TO DO MD-MD DISCUSSION. I PROVIDE DR SIMMONS CELL PHONE AND DR SIMMONS WILL CALL [facility] OPERATIONS MANAGER STATION DR MELCHOR ARROYO. CM TO F/U.
[2018-11-16 10:22] LABS: BASOPHILS # (AUTO) 0.2 K/uL (0.00-0.22); BASOPHILS % (AUTO) 0.9 % (0.0-2.0); EOSINOPHILS # (AUTO) 0.8 K/uL (0-0.4); EOSINOPHILS % (AUTO) 4.6 % (0.0-4.0); HEMATOCRIT 38.5 % (36-48); HEMOGLOBIN 12.6 g/dL (12.0-16.0); LYMPHOCYTES # (AUTO) 1.3 K/uL (2.5-16.5); LYMPHOCYTES % (AUTO) 7.9 % (20.5-51.1); MEAN CORPUSCULAR HEMOGLOBIN 30 pg (27-31); MEAN CORPUSCULAR HGB CONC 33 g/dL (33-37); MEAN CORPUSCULAR VOLUME 92.8 fL (80-94); MONOCYTES # (AUTO) 0.7 K/uL (0.8-1.0); MONOCYTES % (AUTO) 4.3 % (1.7-9.3); NEUTROPHILS # (AUTO) 13.5 K/uL (1.8-7.7); NEUTROPHILS % (AUTO) 82.3 % (42.2-75.2); PLATELET COUNT (AUTO) 382 K/uL (140-450); RED BLOOD CELL COUNT(AUTO) 4.15 MIL/uL (4.20-5.40); RED CELL DISTRIBUTION WIDTH 13.7 % (11.6-13.7); WHITE BLOOD COUNT (AUTO) 16.4 K/uL (4.8-10.8)
[2018-11-16 10:39] LABS: ANION GAP 8.6 (8-16); CARBON DIOXIDE 29.3 mmol/L (21-32); CREATININE 0.8 mg/dL (0.6-1.3); POTASSIUM 3.9 mmol/L (3.5-5.1)
[2018-11-16 10:42] LABS: MAGNESIUM 1.8 mg/dL (1.8-2.4); PHOSPHORUS 3.2 mg/dL (2.5-4.9)
[2018-11-16 12:00] VITALS: BP 109/53
--- NOTE | 2018-11-16 13:17 | NUR ---
CALLED CLINTON HANCOCK FROM [facility] PT GOT DENIAL TO GO TO SNF ,PEER TO PEER DONE WITH DR SIMMONS , PER CLINTON PT CAN BE D/C WITH HOME HEALTH WITH IV ABX. PER DR SIMMONS PT IS NOT STABLE TO BE DISCHARGE AT THIS TIME WILL F/U IN THE MORNING.
[2018-11-16] MEDS: AZITHROMYCIN 250 MG in DEXTROSE 5% 250 ML IV SCH (15:26)
[2018-11-16 16:00] VITALS: BP 110/56
--- NOTE | 2018-11-16 18:30 | NUR ---
IV ON LT HAND DISCONTINUE, CANNULA INTACT. PT CRYING D/T PAIN ON LT HAND. SIGNS OF MINIMAL SWELLING. WILL ENDORSE TO RESTAURANT MANAGEMENT INTERNSHIP NURSE FOR MONITORING.
--- NOTE | 2018-11-16 18:52 | NUR ---
RN KIANA INSERTED IV ON RT HAND 22 GA, BLOOD RETURN NOTED, FLUSHING WITH NO RESISTANCE. PT HAS NO C/O PAIN AT THIS TIME.
--- NOTE | 2018-11-16 19:05 | NUR ---
ENDORSED PT TO ELECTROPHYSIOLOGY TECH NURSE FOR CONTINUITY OF CARE. PT HAS NO SIGNS OF DISTRESS AT THIS TIME.
--- NOTE | 2018-11-16 19:05 | NUR ---
RECIEVED PT [id number] , NID ,IV SITE INTACT AND PATENT , PLAN OF CARE DISCUSSED AND VERBALIZE UNDERSTANDING , BED IN LOW POSITION , CALL LIGHT WITHIN REACH , WILL CONT. TO MONITOR.
--- NOTE | 2018-11-16 19:20 | NUR ---
RECD. REPORT FROM DAREN SANCHES FOR CONTINUITY OF CARE. RESPIRATION EVEN AND UNLABORED. ON 02 AT 3 LITERS VIA N/C, 02 SAT - 96%. WITH UNPRODUCTIVE COUGHING. WANTS ROBITUSSIN AND SLEEPING PILL TONIGHT. SAFETY MEASURES ENFORCED. CALL LIGHT IN REACH, DENIES PAIN 0/10.
[2018-11-16 20:00] VITALS: BP 122/59
[2018-11-16] MEDS: guaiFENesin 20 MG/ML UDC PO PRN (21:27)
[2018-11-16] MEDS: MELATONIN 3 MG TAB PO PRN (21:28)
--- NOTE | 2018-11-16 21:28 | NUR ---
WANTS TO BE ABLE TO SLEEP WELL TONIGHT, STATED UNABLE TO SLEEP LAST NIGHT. STILL BOTHERED BY COUGHING. MEDICATED WITH MELATONIN AND ROBITUSSIN ORDERED.
[2018-11-16] MEDS: ONDANSETRON 4 MG/2 ML VIAL IM/IVP PRN (21:32)
--- NOTE | 2018-11-16 21:32 | NUR ---
NAUSEATED, MEDICATED WITH ZOFRAN 4 MG. IVP BY DAREN SANCHES.
--- NOTE | 2018-11-16 22:00 | NUR ---
NO NAUSEA NOTED, RESTING IN BED COMFORTABLY.
[2018-11-17] VITALS (7 sets, daily range): BP systolic 92–130; BP diastolic 47–71
--- NOTE | 2018-11-17 | NUR ---
COMPLAINED THAT MELATONIN DOES NOT WORK, WILL INFORMED
--- NOTE | 2018-11-17 00:57 | NUR ---
MEDICATED WITH AMBIEN 5 MG. PO ORDERED.
[2018-11-17] MEDS ORDERED: ZOLPIDEM 5 MG TAB PO SCH (01:00)
[2018-11-17] MEDS: ALBUTEROL SULFATE/IPRATROPIU 3 ML SOL IH SCH ×4 (01:00→20:33)
--- NOTE | 2018-11-17 01:34 | NUR ---
PATIENT REQUESTED I LET HER SLEEP FOR HER 0100 HHTX. SAID SHE IS HARD TO FALL BACK ASLEEP & WOULD NOT WANT TO BE WOKEN UP FOR HHTX
--- NOTE | 2018-11-17 02:00 | NUR ---
SLEEPING COMFORTABLY IN BED.
[2018-11-17] MEDS: NACL 0.9% 1,000 ML IV SCH ×2 (02:44→14:31)
--- NOTE | 2018-11-17 04:00 | NUR ---
STILL SLEEPING COMFORTABLY IN BED.
[2018-11-17 06:09] LABS: LD1 FRACTION 18 % (17-32); LD2 FRACTION 34 % (25-40); LD3 FRACTION 25 % (17-27); LD4 FRACTION 11 % (5-13); LD5 FRACTION 12 % (4-20)
[2018-11-17] MEDS ORDERED: LEVO750T2 PO (06:16)
[2018-11-17] MEDS ORDERED: INUL1CTB PO (06:16)
[2018-11-17] MEDS: ACETAMINOPHEN 325 MG TAB PO PRN ×2 (06:29→12:32)
--- NOTE | 2018-11-17 07:10 | NUR ---
AWAKE, AMBULATED FROM BR BACK TO BED. CONDITION REMAIN STABLE. ENDORSED TO DAREN MCDOWELL FOR CONTINUITY OF CARE.
--- NOTE | 2018-11-17 07:11 | NUR ---
RECEIVED BEDSIDE REPORT FROM ARCHITECT MANAGER NURSE. PATIENT IN STABLE CONDITION. AMBULATING BACK TO BED FROM BATHROOM. IV INFUSING WELL TO RIGHT HAND 22 GAUGE CATHETER. NO SIGNS OF DISTRESS ON 3L O2 VIA NC, BUT DOES C/O OF HEADACHE. TYLENOL GIVEN AT 0627, WILL CONTINUE TO MONITOR. PATIENT ALSO C/O NAUSEA AND HAS INTERMITTENT NON-PRODUCTIVE COUGH. WILL GIVE ROBITUSSIN AND ZOFRAN.
[2018-11-17 07:24] LABS: BASOPHILS # (AUTO) 0.2 K/uL (0.00-0.22); BASOPHILS % (AUTO) 1.1 % (0.0-2.0); EOSINOPHILS # (AUTO) 0.8 K/uL (0-0.4); EOSINOPHILS % (AUTO) 5.5 % (0.0-4.0); HEMATOCRIT 37.7 % (36-48); HEMOGLOBIN 12.5 g/dL (12.0-16.0); LYMPHOCYTES # (AUTO) 1.7 K/uL (2.5-16.5); LYMPHOCYTES % (AUTO) 11.8 % (20.5-51.1); MEAN CORPUSCULAR HEMOGLOBIN 31 pg (27-31); MEAN CORPUSCULAR HGB CONC 33 g/dL (33-37); MEAN CORPUSCULAR VOLUME 92.4 fL (80-94); MONOCYTES % (AUTO) 6.5 % (1.7-9.3); NEUTROPHILS % (AUTO) 75.1 % (42.2-75.2); PLATELET COUNT (AUTO) 422 K/uL (140-450); RED BLOOD CELL COUNT(AUTO) 4.08 MIL/uL (4.20-5.40); RED CELL DISTRIBUTION WIDTH 13.4 % (11.6-13.7); WHITE BLOOD COUNT (AUTO) 14.7 K/uL (4.8-10.8)
[2018-11-17 07:28] LABS: CARBON DIOXIDE 29.2 mmol/L (21-32); CREATININE 0.7 mg/dL (0.6-1.3); POTASSIUM 4.2 mmol/L (3.5-5.1)
[2018-11-17 07:32] LABS: MAGNESIUM 1.7 mg/dL (1.8-2.4); PHOSPHORUS 3.6 mg/dL (2.5-4.9)
[2018-11-17] MEDS: guaiFENesin 20 MG/ML UDC PO PRN (07:42)
[2018-11-17] MEDS: ONDANSETRON 4 MG/2 ML VIAL IM/IVP PRN (07:42)
--- NOTE | 2018-11-17 07:45 | NUR ---
ADMINISTERED ZOFRAN 4MG IV FOR C/O NAUSEA, ADMINISTERED ROBITUSSIN 200 MG PO FOR C/O COUGH. PATIENT TOLERATED WELL. SAFETY PRECAUTIONS IN PLACE. WILL CONTINUE TO MONITOR.
[2018-11-17] MEDS: METHIMAZOLE 5 MG TAB PO SCH (08:09)
--- NOTE | 2018-11-17 08:13 | NUR ---
ADMINISTERED SCHEDULED MEDICATIONS, PATIENT TOLERATED WELL.
--- NOTE | 2018-11-17 08:25 | NUR ---
AWAKE AND ALERT VERBALLY RESPONSIVE NO SOB NOTED ON SUPPLEMENTAL OXYGENT AT 3 LPM VIA NC PATIENT WITH BREAKFAST TRAY AT THIS TIME DIVERSIFIED CROPS I FARMWORKER TO ATTEMPT HHN THERAPY AND RESPIRATORY DRUG AT A LATER TIME
[2018-11-17] MEDS ORDERED: MAGNESIUM OXIDE 400 MG TAB PO SCH (08:30)
--- NOTE | 2018-11-17 09:59 | NUR ---
ADMINISTERED ORDERED MAG OXIDE 800MG PO. PATIENT TOLERATED WELL. SAFETY PRECAUTIONS IN PLACE CALL LIGHT IN REACH. WILL CONTINUE TO MONITOR.
--- NOTE | 2018-11-17 10:24 | NUR ---
REQUEST FROM APNCHITO/PROJECT SCHEDULER FOR RESTING ROOM AIR SATURATION REMOVED PATIENT FORM SUPPLEMENTAL OXYGEN AT THIS TIME Addendum: 11/17/18 at 1026 by Miquel Cadet RT JEREMIAS/DAREN NOTIFIED
--- NOTE | 2018-11-17 10:53 | NUR ---
LOC AWAKE AND ALERT VERBALLY RESPONSIVE TO HEAD SUGAR REPROCESS OPERATOR VERBAL COMMANDS NO PULMONARY DISTRESS NOTED RESTING ROOM AIR SATURATION 78% PLACED PATIENT BACK ON SUPPLEMENTAL OXYGEN AT 3 LPM VIA NC HEAD SUGAR REPROCESS OPERATOR TO MONITOR Addendum: 11/17/18 at 1057 by Miquel Cadet RT JEREMIAS/DAREN NOTIFIED
--- NOTE | 2018-11-17 11:32 | NUR ---
PATIENT RESTING IN BED, NO C/O PAIN OR NAUSEA AT THIS TIME. LUNA LIGHT IN REACH. SAFETY PRECAUTIONS IN PLACE. WILL CONTINUE TO MONITOR.
--- NOTE | 2018-11-17 12:33 | NUR ---
ADMINISTERED PRN TYLENOL 650MG PO FOR C/O 5/10 HEADACHE. PATIENT PREFERS TYLENOL. WILL CONTINUE TO MONITOR. CALL LIGHT IN REACH. PATIENT SITTING UP IN BED EATING LUNCH. VITALS STABLE.
--- NOTE | 2018-11-17 14:38 | NUR ---
Labor Operator Note: I called and spoke with Field Project Manager Luli from [facility] regarding MD's home health order and home O2 order. She stated their strategic planner Sandra Suárez will be the one coordinating home health services and home O2 for patient. I faxed recent RN note and recent physical therapy notes including O2 saturation, and MD's orders for home health and home O2 to Luli, fax . I received a call from Luli, she stated she received my fax and told me she forwarded fax to strategic planner Sandra Suárez.
--- NOTE | 2018-11-17 14:55 | NUR ---
PATIENT AMBULATED TO BATHROOM WITH STEADY GAIT. ADMINISTERED SCHEDULED MEDICATIONS. IV INFUSING WELL AT 80ML/HR. SAFETY PRECAUTIONS IN PLACE. PATIENT SON WILL BE AVAILABLE TO TAKE HER HOME AROUND [phone]. CURRENTLY AWAITING CASE MANAGEMENT INSTRUCTIONS REGARDING HOME HEALTH FOR IV ABX TREATMENT AND HOME O2.
[2018-11-17] MEDS ORDERED: AZITHROMYCIN 250 MG in DEXTROSE 5% 250 ML IV SCH (15:00)
--- NOTE | 2018-11-17 16:02 | NUR ---
CALLED KATHARINE REGARDING THE HOME HEALTH [phone] FOR PT AND ABX I SPOKE WITH KIGNA FROM [facility] STILL HAS TO CLARIFY WITH INSURANCE EVEN THOUGH THEY RECEIVE THE AUTH # THEY CAN NOT START THE CARE TUE SUN THEY WILL START TUESDAY BUT THEY WILL CONTACT THE PATIENT. CALLED [facility] [phone] FOR HOME O2 SPOKE WITH GÓMEZ FROM THEY ARE STILL WORKING ON IT AND THEY WILL DELIVER THE PORTABLE O2 TONIGHT .I PROVIDED THE FLOOR NUMBER
--- NOTE | 2018-11-17 16:38 | NUR ---
PATIENT RESTING IN BED, FAMILY AT BEDSIDE. NO SIGNS OF DISTRESS ON 3L O2 NC. PATIENT DISCHARGE AWAITING O2 DELIVERY AND HOME HEALTH CLARIFICATION. SON TO [facility] NURSE PRACTITIONER PATIENT , DISCHARGING HOME.
--- NOTE | 2018-11-17 19:30 | NUR ---
ENDORSED PATIENT TO EMAIL DEVELOPER RN FOR CONTINUITY OF CARE. PATIENT IN STABLE CONDITION ON 3L O2 NC. FAMILY AT BEDSIDE
--- NOTE | 2018-11-17 20:00 | NUR ---
PT IN BED SON AT BEDSIDE WAITING TO TAKE HOME PT BECAUSE PT CALLED HIM AND SAID SHE WAS READY TO LEAVE. HOWEVER WE ARE WAITING FOR OXYGEN DELIVERY, SO THAT PT CAN HAVE SUPPLEMENTAL 02 AT HOME. MADE SON AWARE THAT WE ARE WAITING FOR O2 DELIVERY BECAUSE SHE NEEDS TO BE ON SUPPLEMENTAL 02 AT HOME. SON VERBALIZED UNDERSTANDING. HE SAID HE WILL GO HOME TO [place] AND WAIT FOR [facility] TO CALL HIM REGARDING DISCHARGE. PT V/S FOLLOWS T 97.9 P 104 R 18 B/P 130/71 02 94% WITH 3 LITERS SUPPLEMENTAL 02 VIA N/C.
--- NOTE | 2018-11-17 21:00 | NUR ---
PT IV SITE ON RIGHT HAND 22G INTACT AND FLUSHED PATENT. IV RUNNING N/S AT 80MLS/HR. ROCEPHIN HUNG ORDERED. SPOKE WITH CHARGE NURSE REGARDING DISCHARGE, AWAITING O2 DELIVERY.
--- NOTE | 2018-11-17 21:57 | NUR ---
CALLED [facility] AT [phone] REGARDING OXYGEN, PER KG IN [facility] CALL CENTER, THERE IS NO ORDER FOR OXYGEN, GAVE PT INFORMATION, PER KG THEY WILL CALL BACK WITH THE UPDATE REGARDING THE ORDER. THERE IS NO ESTIMATED TIME AT THIS MOMENT.
[2018-11-18] VITALS: BP 121/67
--- NOTE | 2018-11-18 | NUR ---
SURGERY TEACHER OF KAREN HERE TO DROP OFF 1 BOTTLE OF SUPPLEMENTAL 02. SON CALLED AND MESSAGE LEFT FOR HIM. AWAITING RETURN CALL FROM SON ALBERTO. PT V/S FOLLOWS T 98.7 P 98 R 18 B/P 121/67 02 98% WITH 3 LITERS VIA N/C. ALL REQUESTED NEEDS ATTENDED BY STAFF.
[2018-11-18 00:02] VITALS: BP_SYST 121; BP_SYST 130; BP_DIAS 67; BP_DIAS 71
[2018-11-18] MEDS: ALBUTEROL SULFATE/IPRATROPIU 3 ML SOL IH SCH ×2 (01:00→07:00)
--- NOTE | 2018-11-18 01:00 | NUR ---
WENT BY PATIENTS ROOM, AND PATIENT WAS SLEEPING. PATIENT HAD ASKED TO NOT RECEIVE HHTX IF SLEEPING. WILL CONTINUE TO MONITOR.
[2018-11-18 04:00] VITALS: BP 107/52
[2018-11-18] MEDS: NACL 0.9% 1,000 ML IV SCH (04:01)
--- NOTE | 2018-11-18 05:00 | NUR ---
PT IN BED SLEEPING WITH EYES CLOSED BUT AROUSABLE TO TOUCH. PT RECEIVED DISCHARGE TEACHING AT BEDSIDE USING [employer] PHONE SYSTEM WITH [employer] STRAIGHTEDGE MACHINE OPERATOR HELPER # [id number]. DISCHARGE PAPERS SIGNED PT ABLE TO ASK QUESTIONS REGARDING DISCHARGE. NO C/O VOICED AND VITAL SIGNS FOLLOWS T 97.6 P 91 R 18 B/P 107/52 02 97% WITH 3 LITERS SUPPLEMENTAL 02.
--- NOTE | 2018-11-18 07:37 | NUR ---
REPORT GIVEN TO MORE RN DAYSHIFT NURSE AT BEDSIDE FOR CONTINUITY OF CARE, PT IN STABLE CONDITION.
--- NOTE | 2018-11-18 07:38 | NUR ---
Received bedside report from pm nurse Lela. Pt resting in bed, awake, verbally responsive, respirations even & nonlabored with O2 @ 3Lpm via n/c, FLACC 0. Right hand IV saline lock intact & asymptomatic. Call light within reach.
--- NOTE | 2018-11-18 07:59 | NUR ---
AWAKE AND ALERT NO SOB NOTED ON SUPPLEMENTAL OXYGEN AT 3 LPM VIA NC ON AND FUNCTIONING WELL PATIENT WITH BREAKFAST TRAY AT THIS TIME BREAKER OILER TO ATTEMPT HHN THERAPY AT A LATER TIME
[2018-11-18 08:00] VITALS: BP 103/54
--- NOTE | 2018-11-18 09:05 | NUR ---
Pt's son Sree at bedside. Able to return demonstrate proper use of portable 02 tank. Right hand IV removed, catheter intact. Pt able to amb off unit with steady gait, no signs of distress. All belongings with pt upon departure.
--- NOTE | 2018-11-18 09:42 | NUR ---
HHN THERAPY AND RESPIRATORY DRUG NOT GIVEN PATIENT DISCHARGED FROM FACILITY AT 0905 PER MORE/DAREN
== END 2018-11-18 09:05 | disposition home health service (06) | DRG 871 ==
LOC: MED 12:18 → MTU 16:34
PROVIDERS: ADMIT General Practice; ATTEND General Practice
DX: A41.9 Sepsis, unspecified organism (principal); J18.9 Pneumonia, unspecified organism; G93.41 Metabolic encephalopathy; J96.01 Acute respiratory failure with hypoxia; E43 Unspecified severe protein-calorie malnutrition; E87.1 Hypo-osmolality and hyponatremia; N39.0 Urinary tract infection, site not specified; G95.9 Disease of spinal cord, unspecified; E05.90 Thyrotoxicosis, unspecified without thyrotoxic crisis or storm; M94.0 Chondrocostal junction syndrome [Tietze]; R73.9 Hyperglycemia, unspecified; E78.5 Hyperlipidemia, unspecified; R59.1 Generalized enlarged lymph nodes; N28.1 Cyst of kidney, acquired; E04.1 Nontoxic single thyroid nodule; Z68.31 Body mass index [BMI] 31.0-31.9, adult
CPT/HCPCS: 36415; 36600; 71045; 71250; 71260; 76536; 80048; 80053; 80305; 81001; 82150; 82803; 83036; 83605; 83625; 83690; 83735; 83880; 84100; 84439; 84443; 84484; 85025; 85610; 85730; 86702; 87040; 87081; 87086; 92610; 94640; 96361; 96365; 96368; 97110; 97116; 97161-GP; 97530; 99285; J0456; J0696; J1956; J2405; J7030; J7060; J7620; Q0092; Q9967

== ENCOUNTER 2020-09-24 21:20 | Emergency (ER) | payer MEDICAID, MEDICARE ==
[~2020-09-24] VITALS: Ht 165.1 cm; Wt 77.1 kg
[~2020-09-24 21:20] MED LIST: INUL1CTB PO; LEVO750T2 PO; TAP5 PO
[2020-09-24 21:26] VITALS: BP 119/56
--- NOTE | 2020-09-24 21:29 | NUR ---
Triaged and waiting in ER lobby.
--- NOTE | 2020-09-24 22:14 | NUR ---
Dr. Fisher examining patient.
[2020-09-24] MEDS ORDERED: HYDROcodone/APAP 5/325 MG 1 TAB TAB PO ONE (22:35)
[2020-09-24] MEDS ORDERED: MELO-174 PO (22:37)
--- NOTE | 2020-09-24 22:52 | NUR ---
d/c with VSS. d/c education given. opportunity to ask questions given and aswered. rx of meloxicam given.
== END 2020-09-24 22:52 | disposition home or self-care (01) ==
LOC: MED 21:20
DX: G89.29 Other chronic pain (principal); M25.571 Pain in right ankle and joints of right foot; I83.91 Asymptomatic varicose veins of right lower extremity; Z79.899 Other long term (current) drug therapy
CPT/HCPCS: 99283

== ENCOUNTER 2020-09-29 17:28 | Emergency (ER) | payer MEDICARE ==
[~2020-09-29] VITALS: Ht 165.1 cm; Wt 75.7 kg
[~2020-09-29 17:28] MED LIST changes: +MELO-174 PO
[2020-09-29 17:36] VITALS: BP 135/67
[2020-09-29] MEDS ORDERED: HYDROcodone/APAP 5/325 MG 1 TAB TAB PO ONE (17:55)
--- NOTE | 2020-09-29 18:37 | NUR ---
PT ambulated to bed 08.
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
--- NOTE | 2020-09-29 18:49 | NUR ---
US at bedside
--- NOTE | 2020-09-29 19:17 | NUR ---
RECEIVED REPORT FROM HILDA MERCEDES FOR [facility]
[2020-09-29] MEDS ORDERED: ACET-9525 PO (19:26)
[2020-09-29] MEDS ORDERED: ACET-9527 PO (19:27)
[2020-09-29 19:42] VITALS: BP 135/67
== END 2020-09-29 19:42 | disposition home or self-care (01) ==
LOC: MED 17:28
DX: I83.91 Asymptomatic varicose veins of right lower extremity (principal); Z98.890 Other specified postprocedural states; Z79.899 Other long term (current) drug therapy
CPT/HCPCS: 93971; 99284